=== PATIENT | male | born 1990 | race Hispanic/Latino ===

== ENCOUNTER 2018-05-21 21:42 | Emergency (ER) | payer OTHER ==
[2018-05-21 21:47] VITALS: BP 146/90; PULSE 115; RESP 18; TEMP 98.3; O2SAT 97
--- NOTE | 2018-05-21 22:34 | ED PDOC ---
HPI: Male Pain Time Seen by Provider: 05/21/18 22:33 Chief Complaint (Nursing): Groin Pain Chief Complaint (Provider): testicular pain History Per: Patient (27 y/o male here with perineal discomfort noted x 2 days. Patient concerns for testicular torsion as he notes testicles look smaller. Denies any dysuria/etc.) Past Medical History Reviewed: Historical Data, Nursing Documentation, Vital Signs Vital Signs: Last Vital Signs Temp 98.3 F 05/21/18 21:44 Pulse 115 H 05/21/18 21:44 Resp 18 05/21/18 21:44 BP 146/90 05/21/18 21:44 Pulse Ox 97 05/21/18 21:44 - Family History Family History: States: No Known Family Hx - Allergies Allergies/Adverse Reactions: Allergies Allergy/AdvReac Type Severity Reaction Status Date / Time diazepam [From Valium] Allergy RASH Verified 05/21/18 21:43 Review of Systems ROS Statement: Except As Marked, All Systems Reviewed And Found Negative Physical Exam - Reviewed Nursing Documentation Reviewed: Yes Vital Signs Reviewed: Yes - Physical Exam Appears: Positive for: Well, Non-toxic, No Acute Distress Head Exam: Positive for: ATRAUMATIC, NORMAL INSPECTION, NORMOCEPHALIC Skin: Positive for: Normal Color, Warm, DRY Eye Exam: Positive for: EOMI, Normal appearance, PERRL ENT: Positive for: Normal ENT Inspection Neck: Positive for: Normal, Painless ROM Cardiovascular/Chest: Positive for: Regular Rate, Rhythm Respiratory: Positive for: CNT, Normal Breath Sounds Gastrointestinal/Abdominal: Positive for: Normal Exam, Soft Male Genital Exam: Negative for: testicular tenderness (R), testicular tenderness (L) Back: Positive for: Normal Inspection Extremity: Positive for: Normal ROM Neurological/Psych: Positive for: Awake, Alert, Normal Tone - ECG O2 Sat by Pulse Oximetry: 97 - Progress ED Course And Treament: US TESTICULAR: LEFT SIDED VARICOCELE. OTHERWISE THE STUDY IS UNREMARKABLE Disposition - Clinical Impression Clinical Impression: Testicular pain, Varicocele - Patient ED Disposition Is Patient to be Admitted: No - Disposition Referrals: Rolando Velarde MD [Medical Doctor] - Disposition: Routine/Home Disposition Time: 23:36 Condition: FAIR Instructions: Hydrocele/Varicocele (DC), Varicocele
[2018-05-21 23:25] LABS: SQUAMOUS EPITHIAL < 1 /hpf (0-5); URINE BILIRUBIN NEGATIVE (NEGATIVE); URINE BLOOD NEGATIVE (NEGATIVE); URINE CLARITY CLEAR (Clear); URINE COLOR YELLOW (YELLOW); URINE GLUCOSE (UA) NEG (NEGATIVE); URINE LEUKOCYTE ESTERASE NEG Leu/uL (Negative); URINE PROTEIN NEGATIVE (NEGATIVE); URINE UROBILINOGEN 0.2-1.0 mg/dL (0.2-1.0)
--- NOTE | 2018-05-22 10:22 | US ---
Date of service: 05/21/2018 HISTORY: right testicular pain TECHNIQUE: Realtime duplex sonography through the scrotum with color and doppler flow. COMPARISON: None Available. FINDINGS: RIGHT TESTICLE: Measures 4.4 x 2.4 x 3 cm. Normal echotexture and flow. RIGHT EPIDIDYMIS: Epididymal head measures 11 x 6 millimeters grossly unremarkable appearance with normal flow. LEFT TESTICLE: Measures 4.4 x 2.1 x 2.8 cm. Normal echotexture and flow. LEFT EPIDIDYMIS: Epididymal head measures 0.9 x 0.9 cm. Grossly unremarkable appearance with normal flow. HYDROCELE: Minor bilateral hydrocele is seen. VARICOCELE: Left varicocele is appreciated. OTHER FINDINGS: No scrotal wall thickening is seen. IMPRESSION: No ultrasound evidence of torsion. Left-sided varicocele. This agrees with preliminary report.
== END 2018-05-21 23:50 | disposition home or self-care (01) ==
LOC: H.ER 21:42
DX: I86.1 Scrotal varices (principal)